=== PATIENT | female | born 1960 | race Caucasian/White ===

== ENCOUNTER → 2016-05-27 | Outpatient (CLI) | payer OTHER ==
[~2016-05-27] MED LIST: ACTOS 30 MG TAB30 MG PO; ADVAIR HFA 230M1 AER IH; ALBUTEROL NEB; ALBUTEROL2.5 MG/31 INH; ALEVE220 M1 PO; APAP500 PO; ASPIRIN325 PO; CARDIZEM CD180 MG PO; CELEXA20 MG PO; CIPRO500 MG PO; DOXYCYCLINE 10100 MG PO; ENDOCET 5-3251 EACH PO; FLAGYL500 MG PO; FLEXERIL PO; GABAPENTIN 100100 MG PO; GLIPIZIDE 5 MG T5 MG PO; HYDROCODONE-AP1 EAC6 PO; INVOKANA100 MG PO; LANTUS100 UNIT/M SUBQ; LASIX 40 MG TAB40 M2 PO; LEVEMIR SUBQ; LIPITOR 20 MG T20 M1 PO; MOBIC7.5 MG PO; NAPHCON-A EYE D15 ML OP; NORCO 5-325 TA1 EACH PO; NORVASC 5 MG TAB5 MG PO; NOVOLOG100 UNIT/1; NOVOLOG100 UNIT/1 SUBQ; NYSTATIN15 GM TOP; ONGLYZA5 MG PO; PAXIL40 MG PO; PERCOCET 5-3251 EACH PO; PREDNISONE 20 M20 MG PO; QVAR HFA 880 MCG/UN1; QVAR HFA 880 MCG/UN1 INH; SIMVASTATIN40 MG PO; SPIRONOLACTONE100 M1 OR; TOBREX5 ML OP; TOPROL XL200 MG PO; VALIUM5 MG PO; VITAMIN D3400 UNIT PO; WARFARIN SODIUM5 MG PO; XOPENEX HFA15 GM INH
== END ==
LOC: RAD 06:57
DX: J44.9 Chronic obstructive pulmonary disease, unspecified (principal)

== ENCOUNTER → 2017-05-21 | Outpatient (CLI) | payer OTHER ==
[~2017-05-21] MED LIST changes: -CELEXA20 MG PO; +CELEXA40 MG PO; +INVOKANA300 MG PO; +NAPROSYN500 MG PO; +TANZEUM30 MG/0.5 SQ
== END ==
LOC: MRI 08:53
DX: M47.26 Other spondylosis with radiculopathy, lumbar region (principal)

== ENCOUNTER → 2017-06-12 | Outpatient (CLI) | payer OTHER ==
[~2017-06-12] VITALS: Ht 172.7 cm; Wt 99.8 kg
--- NOTE | ~2017-06-12 | HPC ---
[facility] [place] [place] [address] PAIN MANAGEMENT CONSULTATION Name: EDGARDOCHINMAY KELLE Room #: REG GEORGESAmanda Durham.#: [id number] Admission: 06/12/17 Attend Phys: Margarito Chi DO Discharge: Date of : 56 Report #: [id number] THIS REPORT FOR: //name// CC: John Chi PAIN CLINIC CONSULT The patient is a 48-year-old female seen in consultation at the request of Dr. Anderson for assistance with management of pain in left low back radiating into the anterior thigh. The patient notes pain has been present for years. She had lumbar epidural injections back in 2004 with overall improvement of symptoms. She did physical therapy last year and has just restarted PT again. She notes pain seems to be getting worse in the last few months, exacerbated with walking. She gets left calf pain with walking, though primary pain in the left buttock radiating to the anterior thigh is the primary pain. She rates it as 7/10 on a VAS, describes it as a "steady" type pain. Has some subjective weakness in the left leg, chronic paresthesia in the left foot. Denies bowel or bladder continence changes or saddle anesthesia. SOCIAL HISTORY: She is , does not smoke, drink alcohol to excess. PAST MEDICAL HISTORY: Has a history of diabetes, currently taking Invokana. Albuterol metered dose inhaler for asthma, multiple medications for hypertension including diltiazem, Lasix, metoprolol and spironolactone History of atrial fibrillation, currently on Coumadin. History of surgery for aortic coarctation. Chronic anxiety for which she takes citalopram, gabapentin 400 mg 2 tablets b.i.d. for chronic left foot neuropathy. Dyslipidemia for which she takes atorvastatin. She uses a rare hydrocodone 5/325 on a nondaily basis. REVIEW OF SYSTEMS: Complete review of systems attached to chart. The patient is otherwise negative and/or noncontributory. 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 She does not take hydrocodone during the day that she drives. She occasionally takes hydrocodone at night. Rates her pain impact score at 22/70. PHYSICAL EXAMINATION: VITAL SIGNS: Reveals a 5 feet 8 inches, 220 pounds female, BMI is 33.5 kilograms per meter squared. Blood pressure 126/70, pulse 63, respirations 20. NEUROLOGIC: Cranial nerves 2-12 are grossly intact. HEENT: Pupils equal, react to light and accommodation. Extraocular muscles are intact. There is no nystagmus. Lateral gaze deviation. She has poor dentition and some shotty cervical adenopathy. NECK: Cervical range of motion is full. Thyroid is unremarkable. HEART: Irregularly irregular with a subtle 1-2/6 systolic ejection murmur. [facility] [address] [place] [address] PAIN MANAGEMENT CONSULTATION Name: CHINMAY REYNOSO KELLE Room #: REG [facility] Marva.#: [id number] Admission: 06/12/17 Attend Phys: Margarito Chi DO Discharge: Date of : 56 Report #: [id number] LUNGS: Sounds are distant. Endomorphic build. MUSCULOSKELETAL: Upper extremity strength is preserved about 4/5. Rises from chair using armrest. Lumbar flexion is limited to 70 degrees, tenderness in the left thigh and gluteus natanael. Left dorsiflexion, lower extremity extension strength is diminished about 3/5, hip flexion strength is diminished about 3-4/5. All muscle groups on the right side are 4/5 to objective testing. Modestly positive straight leg raise on the left and a grossly positive Apoorva test on the left. Positive Gaenslen's test. Due to endomorphic build, difficult to perform an adequate pelvic distraction test. Piriformis exam is unremarkable. DIAGNOSTIC STUDIES: Include MRI of the lumbar spine from 05/21/2017 noting significant lumbar spondylosis with disk desiccation at L5-S1. L4-L5 notes [id number] bilateral facet arthrosis, L5-S1 notes severe right and moderate left facet arthrosis. ASSESSMENT: Symptomatic sacroiliac joint dysfunction by clinical exam, lumbar and lumbosacral spondylosis in a patient with multiple comorbidities, currently anticoagulated for atrial fibrillation. RECOMMENDATION: Discussion with the patient today about therapeutic option. Given anticoagulant use, NSAID is contraindicated. We will trial left SI joint injection under fluoroscopy. She is currently taking physical therapy. We will ask that therapist instruct patient in core strengthening exercises. Followup in 4 weeks for reevaluation. May consider facet joint injection if indicated clinically. If sciatic symptoms predominate, we will consider epidural injection under fluoroscopy, though she will have to be off Coumadin for 5 days. Thanks for allowing me to participate in agreement. I will keep abreast of her progress. PROCEDURE NOTE: Left SI joint injection under fluoroscopy. PROCEDURE: After written informed consent was obtained, the patient was taken to the fluoroscopy suite and placed in prone position. After sterile prep and drape, skin wheal with Xylocaine was raised. A 22-gauge stylet needle was placed to contact the inferior aspect of the left SI joint. Negative aspiration was accomplished. Omnipaque 1 mL was injected, showed spread in the joint followed with 40 mg triamcinolone plus 2 mL of 0.5 preservative-free bupivacaine. Fluoroscopy time was under 15 seconds. The patient was monitored for an appropriate period of time, discharged in good and stable condition. [facility] [address] [place] [address] PAIN MANAGEMENT CONSULTATION Name: CHINMAY REYNOSO KELLE Room #: REG CLI Da.#: [id number] Admission: 06/12/17 Attend Phys: Margarito Chi DO Discharge: Date of : 56 Report #: [id number] patient noted subjective pain score of 7 on a VAS, was down to 3/10 on a VAS at discharge. <ELECTRONICALLY SIGNED> By: Margarito Chi DO 06/15/17 0809 [id number] Margarito Chi DO /nt
[2017-06-12 10:44] VITALS: BP 126/70
== END | disposition home or self-care (01) ==
LOC: PAIN 06:51
DX: M53.3 Sacrococcygeal disorders, not elsewhere classified (principal); I48.91 Unspecified atrial fibrillation; Z79.01 Long term (current) use of anticoagulants; M47.816 Spondylosis without myelopathy or radiculopathy, lumbar region; Z68.33 Body mass index [BMI] 33.0-33.9, adult; F41.9 Anxiety disorder, unspecified; G62.9 Polyneuropathy, unspecified; E78.5 Hyperlipidemia, unspecified; E11.9 Type 2 diabetes mellitus without complications; Z79.4 Long term (current) use of insulin; J45.909 Unspecified asthma, uncomplicated; Q25.1 Coarctation of aorta

== ENCOUNTER → 2018-07-27 | Outpatient (CLI) | payer OTHER ==
[~2018-07-27] MED LIST changes: +MEDROLDOSEPACK PO; +NORCO 5-325 TA1 EAC1 PO; +NORFLEX100 MG PO
== END ==
LOC: RAD 10:23
DX: M16.12 Unilateral primary osteoarthritis, left hip (principal); M25.551 Pain in right hip

== ENCOUNTER → 2018-09-13 | Outpatient (CLI) | payer OTHER ==
[~2018-09-13] MED LIST changes: -MEDROLDOSEPACK PO; -NORFLEX100 MG PO
== END ==
LOC: RAD 09:45
DX: S22.42XA Multiple fractures of ribs, left side, initial encounter for closed fracture (principal); J90 Pleural effusion, not elsewhere classified; W19.XXXA Unspecified fall, initial encounter; Y93.89 Activity, other specified; Y92.89 Other specified places as the place of occurrence of the external cause; Y99.8 Other external cause status

== ENCOUNTER 2018-09-17 16:14 | Emergency (ER) | payer OTHER ==
[~2018-09-17] VITALS: Ht 172.7 cm; Wt 122.5 kg
[~2018-09-17 16:14] MED LIST changes: -NORCO 5-325 TA1 EAC1 PO
[2018-09-17 19:08] LABS: ABSOLUTE NEUTROPHILS 9.8 thou/uL (1.4-8.2); BASOPHILS 0.3 % (0.0-2.0); EOSINOPHILS 0.4 % (0.0-3.0); HEMATOCRIT 44.9 % (37.0-47.0); LYMPHOCYTES 4.9 % (24.0-44.0); MCH 30.8 pg (26.0-34.0); MCHC 33.4 g/dL (28.0-37.0); MCV 92.1 fL (80.0-100.0); MONOCYTES 2.1 % (1.0-8.0); PLATELET COUNT 237 thou/uL (150-400); POLYS 92.3 % (36.0-66.0); RBC 4.88 mil/uL (4.20-5.00); RDW 14.6 % (10.5-14.5); WBC 10.7 thou/uL (4.0-11.0)
[2018-09-17 19:12] LABS: CALCIUM 9.1 mg/dL (8.5-10.1); POTASSIUM 4.1 mmol/L (3.5-5.1)
[2018-09-17] MEDS ORDERED: NORCO 5-325 TA1 EAC1 PO (19:30)
[2018-09-17 20:04] VITALS: BP 115/73
== END 2018-09-17 20:06 | disposition home or self-care (01) ==
LOC: ER 16:14
PROVIDERS: Nurse Practitioner Family
DX: M79.604 Pain in right leg (principal); F17.210 Nicotine dependence, cigarettes, uncomplicated; Z88.1 Allergy status to other antibiotic agents; Z88.0 Allergy status to penicillin; Z88.2 Allergy status to sulfonamides; Z98.890 Other specified postprocedural states; Z90.49 Acquired absence of other specified parts of digestive tract

== ENCOUNTER 2018-09-27 20:52 | Emergency (ER) | payer OTHER ==
[~2018-09-27] VITALS: Ht 172.7 cm; Wt 122.5 kg
[~2018-09-27 20:52] MED LIST changes: +NORCO 5-325 TA1 EAC1 PO
[2018-09-28] MEDS ORDERED: MEDROLDOSEPACK PO (00:53)
[2018-09-28] MEDS ORDERED: NORFLEX100 MG PO (00:53)
[2018-09-28 01:10] VITALS: BP 145/68
== END 2018-09-28 01:10 | disposition home or self-care (01) ==
LOC: ER 20:52
DX: M54.32 Sciatica, left side (principal); F17.210 Nicotine dependence, cigarettes, uncomplicated; Z88.1 Allergy status to other antibiotic agents; Z88.0 Allergy status to penicillin; Z88.2 Allergy status to sulfonamides; Z79.899 Other long term (current) drug therapy; Z79.82 Long term (current) use of aspirin; Z79.01 Long term (current) use of anticoagulants; Z98.890 Other specified postprocedural states; Z86.73 Personal history of transient ischemic attack (TIA), and cerebral infarction without residual deficits

== ENCOUNTER 2018-10-12 08:57 | Emergency (ER) | payer OTHER ==
[~2018-10-12] VITALS: Ht 172.7 cm; Wt 97.5 kg
[~2018-10-12 08:57] MED LIST changes: +MEDROLDOSEPACK PO; +NORFLEX100 MG PO
[2018-10-12 09:43] LABS: HEMATOCRIT 37.8 % (37.0-47.0); HEMOGLOBIN 12.6 gm/dL (12.0-15.0); MCH 30.5 pg (26.0-34.0); MCHC 33.4 g/dL (28.0-37.0); MCV 91.3 fL (80.0-100.0); RBC 4.14 mil/uL (4.20-5.00); RDW 15.5 % (10.5-14.5); WBC 8.5 thou/uL (4.0-11.0)
[2018-10-12 09:51] LABS: CALCIUM 8.9 mg/dL (8.5-10.1); CREATININE 0.7 mg/dL (0.6-1.0); POTASSIUM 4.2 mmol/L (3.5-5.1)
[2018-10-12] MEDS ORDERED: LYRICA 50 MG50 MG PO (09:53)
[2018-10-12 10:04] LABS: PROTIME 72.6 Seconds (9.3-11.4)
[2018-10-12 10:06] LABS: INR 7.1
[2018-10-12] MEDS ORDERED: TRAZODONE HCL50 MG PO (10:25)
[2018-10-12 10:39] LABS: URINE BILIRUBIN NEGATIVE (Negative); URINE BLOOD 3+ (Negative); URINE CLARITY CLOUDY; URINE COLOR RED; URINE GLUCOSE-RANDOM* 3+ (Negative); URINE KETONES NEGATIVE (Negative); URINE LEUKOCYTES-REFLEX NEGATIVE (Negative); URINE NITRITE-REFLEX NEGATIVE (Negative); URINE PROTEIN (DIPSTICK) 2+ (Negative); URINE SPECIFIC GRAVITY 1.015 (1.005-1.035)
[2018-10-12 11:00] LABS: BACTERIA-REFLEX 1-9 Few /HPF (None Seen); CASTS None Seen /LPF (None Seen); CRYSTALS None Seen /LPF (None Seen); SQUAMOUS None Seen /LPF (0-3); URINE RBC >20 Many /HPF (0-2); URINE WBC-REFLEX None Seen /HPF (0-5)
[2018-10-12 11:53] VITALS: BP 122/73
== END 2018-10-12 11:53 | disposition home or self-care (01) ==
LOC: ER 08:57
PROVIDERS: Emergency Medicine
DX: S20.221A Contusion of right back wall of thorax, initial encounter (principal); S40.022A Contusion of left upper arm, initial encounter; S40.021A Contusion of right upper arm, initial encounter; S80.12XA Contusion of left lower leg, initial encounter; S80.11XA Contusion of right lower leg, initial encounter; R31.9 Hematuria, unspecified; R79.1 Abnormal coagulation profile; F17.210 Nicotine dependence, cigarettes, uncomplicated; Z90.49 Acquired absence of other specified parts of digestive tract; Z98.890 Other specified postprocedural states; Z88.0 Allergy status to penicillin; Z88.2 Allergy status to sulfonamides; Z88.1 Allergy status to other antibiotic agents; Z86.73 Personal history of transient ischemic attack (TIA), and cerebral infarction without residual deficits; W18.39XA Other fall on same level, initial encounter; Y93.89 Activity, other specified; Y92.89 Other specified places as the place of occurrence of the external cause; Y99.8 Other external cause status

== ENCOUNTER → 2019-11-10 | Outpatient (CLI) | payer OTHER ==
[~2019-11-10] MED LIST changes: +LYRICA 50 MG50 MG PO; +TRAZODONE HCL50 MG PO
== END ==
LOC: RAD 11:57
PROVIDERS: ATTEND Internal Medicine Pulmonary Disease
DX: R06.02 Shortness of breath (principal); M47.814 Spondylosis without myelopathy or radiculopathy, thoracic region

== ENCOUNTER → 2021-03-04 | Outpatient (CLI) | payer OTHER ==
--- NOTE | 2021-03-11 10:43 | SLE ---
[facility] [place] [address] [address] [place] [address] POLYSOMNOGRAPHY STUDY Name: CHINMAY REYNOSO KELLE Room #: REG [facility] GilSerafinKarmaSerafin#: [id number] Admission: 03/04/21 Attend Phys: Hiram Vieira MD Discharge: Date of : 56 Report #: [id number] THIS REPORT FOR: cc: John Anderson Steven F. DO Khan, Aman U. MD ~ cc: Carter Jordan MD DATE OF SERVICE: 03/04/2021 SLEEP STUDY ATTENDING PHYSICIAN: Dr. Carter Jordan. The patient is a 60-year-old who weighs 240 pounds with a BMI of 37.6. The patient has history of severe sleep apnea diagnosed by previous study in 2012. The patient's AHI was 82 per hour. The patient has been on auto CPAP at a pressure of 9-16. However, she continues to have severe subjective hypersomnia with an [place] score of 18. The patient had a recent download data on her auto CPAP and was found to have an AHI of 18.6 per hour and was predominantly from central apnea index of 12.8 per hour. The patient was referred back to [facility] for a BiPAP titration study. During the night study, the patient spent 477 minutes in bed and slept for 386 minutes with a sleep efficiency of 81%. Sleep latency was 31 minutes with a REM latency of 276 minutes. Sleep architecture showed increased stage I and stage II sleep, absent slow wave and reduced REM sleep, which was only 4% of total sleep time. During the night of the study, the patient's EKG monitoring revealed an average heart rate of 47 beats per minute. No sustained arrhythmias observed. It was an irregular rhythm suggestive of A-fibrillation. Occasional PVC's seen. PLMs were seen at index of 44 per hour, but only 1.6 per hour caused EEG arousals. The patient was started on BiPAP at a pressure of 8/4. A backup rate of 12 was added due to central apneas. The patient was initially started on a nasal mask and then switched to full face mask due to oral leak. The patient used a small size mask. The patient could not sleep on her back due to sciatic nerve issues. Pressure was titrated all the way up to 21/15. At the final pressure, the patient slept for 135 minutes. The patient had 4 minutes of REM sleep. The patient had lateral sleep throughout the night. No supine sleep. The patient's AHI was 3.5 per hour at this pressure with a backup rate of 12. Oxygen [facility] [address] [place] [address] POLYSOMNOGRAPHY STUDY Name: CHINMAY REYNOSO KELLE Room #: REG [facility]..#: [id number] Admission: 03/04/21 Attend Phys: Hiram Vieira MD Discharge: Date of : 56 Report #: [id number] saturations remained above 90%. The pulse ox did come off on the final pressure for a short period of time.. The patient's oxygen saturations remained in the high 90'ss at lower pressures. IMPRESSION: 1. Severe sleep apnea diagnosed by previous sleep study. 2. Moderate to severe PLMs at an index of 44 per hour with only 1.6 per hour caused EEG arousals. RECOMMENDATIONS: 1. BiPAP at a pressure of 21/15 with a backup rate of 12, should be used on a nightly basis. 2. Follow up in 4-6 weeks to assess compliance with BiPAP and to document clinical improvement. 3. Weight loss is strongly advised. 4. Avoid [employer] depressants. 5. Cautioned regarding driving until symptoms of sleep apnea resolve with the use of BiPAP. 6. PLMs does not need to be treated unless the patient has symptoms of restless legs during the day. <ELECTRONICALLY SIGNED> By: Hiram Vieira MD 03/11/21 1043 [id number] Hiram Vieira MD /nt
== END ==
LOC: SLEEPLAB 10:09
PROVIDERS: ATTEND Internal Medicine Critical Care Medicine
DX: Z20.822 Contact with and (suspected) exposure to COVID-19 (principal); G47.30 Sleep apnea, unspecified